=== PATIENT | female | born 2000 | race Caucasian/White ===

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

== ENCOUNTER 2020-06-12 09:42 | Outpatient (REF) | payer MEDICAID, SELFPAY ==
[2020-06-16 16:56] LABS: Chlamydia Result Positive (Negative)
[2020-06-16 16:59] LABS: GC Result Negative (Negative)
[2020-06-17 15:53] LABS: HIV-1/2 Ag & Ab Screen Negative (Negative)
[2020-06-17 15:54] LABS: Syphilis Serology (RPR) Negative (Negative)
== END 2020-06-12 10:02 ==
LOC: NCHCN 09:42
PROVIDERS: PCP Nurse Practitioner Family; Visit Provider Physician Assistant
DX: Z11.3 Encounter for screening for infections with a predominantly sexual mode of transmission (principal); N89.8 Other specified noninflammatory disorders of vagina
CPT/HCPCS: 87389; 87491; 87591; 86592

== ENCOUNTER 2020-07-27 19:40 | Outpatient (REF) | payer MEDICAID, SELFPAY ==
[2020-07-27 19:05] LABS: HCT 41.6 % (36.0-46.0); HGB 13.8 g/dL (11.2-15.7); MCHC 33.2 % (32.0-36.0); MCV 93.5 fL (80-95); Platelet Count 283 10^3/uL (130-400); RBC 4.45 10^6/uL (3.93-5.22); RDW-SD 44.3 fL; WBC 5.82 10^3/uL (4.4-10.8)
[2020-07-27 19:27] LABS: ALT 25 U/L (14-59); AST 15 U/L (15-37); Albumin 3.8 g/dL (3.4-5.0); Alkaline Phosphatase 80 U/L (46-116); Anion Gap 8.1 mmol/L (3-11); BUN 16 mg/dL (7-18); Bilirubin, Total 0.5 mg/dL (0.2-1.0); C-Reactive Protein 0.09 mg/dL (0.0-0.3); CO2 25.9 mmol/L (21.0-32.0); CREATININE 0.81 mg/dL (0.55-1.02); Calcium 8.7 mg/dL (8.5-10.1); Chloride 105 mmol/L (98-107); Glucose 73 mg/dL (74-106); Potassium 3.9 mmol/L (3.5-5.1); Sodium 139 mmol/L (136-145); Total Protein 6.7 g/dL (6.4-8.2)
[2020-07-27 19:48] LABS: ESR 7 mm/hr (0-20)
[2020-07-29 09:00] LABS: HBs Antibody, Quant 363.3 mIU/mL (See Note); Hepatitis B Surface Ab Positive (See Note)
[2020-07-29 09:11] LABS: Hepatitis B Surface Ag Negative (Negative)
[2020-07-29 09:37] LABS: Hepatitis C Ab w Rflx HCV PCR Negative (Negative)
[2020-07-29 10:09] LABS: HIV-1/2 Ag & Ab Screen Negative (Negative)
[2020-07-29 10:30] LABS: Syphilis Serology (RPR) Negative (Negative)
[2020-07-29 11:53] LABS: IgA 86 mg/dL (85-499); Interpretation (See Note); Tissue Transglutaminase IgA <1.2 U/mL (<4.0)
[2020-07-29 13:26] LABS: Chlamydia Result Negative (Negative); GC Result Negative (Negative)
[2020-07-29 15:00] LABS: ANA Interpretation Positive (Negative); ANA Titer Pattern 1:80 Homogeneous
== END 2020-07-27 20:00 ==
LOC: NCHCN 19:40
PROVIDERS: PCP Nurse Practitioner Family; Visit Provider Nurse Practitioner Family
DX: N89.8 Other specified noninflammatory disorders of vagina (principal); L29.8 Other pruritus; R23.8 Other skin changes; Z11.3 Encounter for screening for infections with a predominantly sexual mode of transmission; Z11.4 Encounter for screening for human immunodeficiency virus [HIV]; Z11.59 Encounter for screening for other viral diseases
CPT/HCPCS: 80053; 82784; 83516; 85027; 85652; 86706; 86803; 87340; 87389; 87491; 87591; 86038; 86140; 86592; 87480; 87510; 87660

== ENCOUNTER 2020-11-02 09:50 | Outpatient (REF) | payer MEDICAID, SELFPAY ==
[2020-11-04 09:44] LABS: Hepatitis B Surface Ag Negative (Negative)
[2020-11-04 10:55] LABS: HIV-1/2 Ag & Ab Screen Negative (Negative)
[2020-11-04 10:56] LABS: Hepatitis C Ab w Rflx HCV PCR Negative (Negative)
[2020-11-04 11:13] LABS: Syphilis Serology (RPR) Negative (Negative)
[2020-11-06 15:00] LABS: Chlamydia Result Negative (Negative); GC Result Negative (Negative)
== END 2020-11-02 09:51 | disposition home or self-care (01) ==
LOC: NCHCN 09:50
PROVIDERS: PCP Nurse Practitioner Family; Visit Provider Nurse Practitioner Family
DX: N89.8 Other specified noninflammatory disorders of vagina (principal); L29.8 Other pruritus; Z11.3 Encounter for screening for infections with a predominantly sexual mode of transmission; Z11.59 Encounter for screening for other viral diseases
CPT/HCPCS: 86803; 87340; 87389; 87491; 87591; 86592; 87480; 87510; 87660

== ENCOUNTER 2021-01-28 14:12 | Outpatient (CLI) | payer MEDICAID, SELFPAY ==
--- NOTE | 2021-01-28 14:30 | DI.US_ITS ---
Exam(s) US OB 1ST TRIMESTER EXAM: US OB 1ST TRIMESTER CLINICAL HISTORY: threatened miscarriage,bleeding. TECHNIQUE: First trimester obstetrical ultrasound was performed. COMPARISON: US US PELVIS TRANSVAGINAL from 12/06/2019 . There are no prior ultrasounds this gesta tion FINDINGS: There is an intrauterine gestational sac which contains a yolk sac and viable pole which exhibi ts heart rate of 178 bpm. Balta-rump length measurement is 26 mm, corresponding to 9 weeks and 3 days gestational age. Gestati onal sac appears slightly large. There is no evidence of subchorionic hemorrhage. Maternal ovaries: Right ovary measures 1.9 x 1.4 x 1.4 cm. Left ovary measures 2.7 x 1.9 x 2.3 cm and contains a 1.8 c m cyst which is possibly corpus luteal. There is no fluid in the cul-de-sac and adnexal regions. IMPRESSION:: Single viable intrauterine gestation which is approximately 9 weeks and 3 days gestatio nal age by crown rump length measurement, implying THERESA of August 30, 2021., There is no evidence of subchorionic hemorrhage. There is no free fluid evident in the cul-de-sac. DATA REPOSITORY:
== END 2021-01-28 14:32 ==
PROVIDERS: PCP Nurse Practitioner Family; Visit Provider Advanced Practice Midwife
DX: O20.0 Threatened abortion (principal); Z3A.09 9 weeks gestation of pregnancy
CPT/HCPCS: 76801

== ENCOUNTER 2021-02-17 16:26 | Outpatient (REF) | payer MEDICAID, SELFPAY ==
[2021-02-19 15:25] LABS: Chlamydia Result Negative (Negative); GC Result Negative (Negative)
== END 2021-02-17 16:27 | disposition home or self-care (01) ==
LOC: LBN 16:26
PROVIDERS: PCP Nurse Practitioner Family; Visit Provider Advanced Practice Midwife
DX: O20.9 Hemorrhage in early pregnancy, unspecified (principal); Z3A.13 13 weeks gestation of pregnancy
CPT/HCPCS: 87491; 87591; 87480; 87510; 87660

== ENCOUNTER 2021-02-18 16:04 | Outpatient (CLI) | payer MEDICAID, SELFPAY ==
[2021-02-18 16:14] LABS: Kit/Specimen SENT
[2021-02-18 16:25] LABS: Abs Immature Grans 0.06 10^3/uL (0.0-0.06); Absolute Basophil Count 0.02 10^3/uL (0.0-0.2); Absolute Neutrophil Count 9.54 10^3/uL (1.2-6.7); Basophils % 0.2; Eosinophils % 0.8; HCT 42.3 % (36.0-46.0); HGB 14.5 g/dL (11.2-15.7); Immature Grans % 0.5; Lymphocytes % 11.6; MCH 31.5 pg (27.0-33.0); MCHC 34.3 % (32.0-36.0); MCV 91.8 fL (80-95); MPV 9.7 fL (8.0-11.0); Monocytes % 7.5; Neutrophils % 79.4; Nucleated RBC 0 %; Platelet Count 285 10^3/uL (130-400); RBC 4.61 10^6/uL (3.93-5.22); RDW 12.8 % (11.7-14.6); RDW-SD 42.9 fL; WBC 12.02 10^3/uL (4.4-10.8)
[2021-02-18 16:27] LABS: Absolute Lymphocyte Count 1.39 10^3/uL (1.2-3.4)
[2021-02-18 17:12] LABS: TSH (W/Ref FT4) 2.27 uIU/mL (0.36-3.74)
[2021-02-18 20:21] LABS: *AMPHETAMINES SCREEN URINE Negative (Negative); *BARBITURATES SCREEN URINE Negative (Negative); *BENZODIAZEPINES SCREEN URINE Negative (Negative); Cannabinoids THC Negative (Negative); Cocaine Screen,Urine Negative (Negative); METHADONE URINE SCREEN Negative (Negative); OPIATES URINE SCREEN Negative (Negative)
[2021-02-18 20:37] LABS: Tricyclic Antidepressants Negative (Negative)
[2021-02-19 10:15] LABS: Hepatitis B Surface Ag Negative (Negative)
[2021-02-19 10:56] LABS: Hepatitis C Ab w Rflx HCV PCR Negative (Negative)
[2021-02-19 11:08] LABS: HIV-1/2 Ag & Ab Screen Negative (Negative)
[2021-02-19 12:00] LABS: Varicella IgG Antibody Positive (See Note)
[2021-02-19 12:07] LABS: Rubella IgG Ab (UVM) Positive (See Note)
[2021-02-19 12:15] LABS: HSV Type 1 Ab, IgG Negative (Negative); HSV Type 2 Ab, IgG Negative (Negative)
[2021-02-20 13:08] LABS: Syphilis Total Ab w/Reflex Nonreactive (Nonreactive)
[2021-02-24 10:04] LABS: Buprenorphine Negative ng/mL (Cutoff: 5.0); Norbuprenorphine Negative ng/mL (Cutoff: 2.5)
[2021-03-01 03:58] LABS: Result Summary NEGATIVE; Specimen WB Whole Blood
== END 2021-02-18 16:05 | disposition home or self-care (01) ==
LOC: LBO 16:06 → LBN 18:55
PROVIDERS: PCP Nurse Practitioner Family; Visit Provider Advanced Practice Midwife
DX: O99.341 Other mental disorders complicating pregnancy, first trimester (principal); F31.9 Bipolar disorder, unspecified; Z11.4 Encounter for screening for human immunodeficiency virus [HIV]; Z11.59 Encounter for screening for other viral diseases; Z01.84 Encounter for antibody response examination; Z3A.13 13 weeks gestation of pregnancy; Z36.89 Encounter for other specified antenatal screening
CPT/HCPCS: 36415; 80307; 86787; 86803; 86850; 86900; 86901; 87340; 87389; 81220; 84443; 85025; 86695; 86696; 86762; 86780; 87086

== ENCOUNTER 2021-03-17 13:06 | Emergency (ER) | payer MEDICAID, SELFPAY ==
[2021-03-17 13:13] VITALS: BP 111/62; PULSE 95; TEMP 36.9; O2SAT 96
--- NOTE | 2021-03-17 13:40 | ED.GENADUL_ITS ---
Discharge Plan Disposition Patient Disposition: HOME Condition: Improving Discharge Details Clinical Impression: , UTI (urinary tract infection) Primary Care Provider: Ean Ordoñez ED Provider: Chucky Santos Home Meds and New Rx's Prescriptions: New nitrofurantoin macrocrystal [Macrodantin] 100 mg capsule 100 mg PO BID 5 Days Qty: 10 RF: 0 Continued PreTAB 29-1 mg tablet 1 tab PO DAILY Qty: 90 RF: 4 Discharge Instructions Instructions: Urinary Tract Infection in Women (ED), (ED) Additional Instructions: You have a follow-up appointment on March 25 with [facility]. Call for the Appointment Time. Take antibiotics as prescribed. May use Tylenol as needed for aches or pains. Return for any acute concerns Medical Decision Making 20-year-old female, 4 months , presents with a number of complaints. She feels right low back pain, left arm and shoulder pain. She states she had a recent visit to the She is well-appearing. Exam is without focality. Screening urinalysis obtained. Urinalysis with positive leuk esterase, microscopic with mixed cells. However given that she is , will err on the side of treatment with nitrofurantoin. Discussed further work-up with the patient which she will decli juanjose at this time as she has to leave. She has a follow-up with the midwives clinic on March 25. [facility] General Mode of arrival: ambulatory . Date/Time Provider Initiated Documentation: 03/17/21 13:14 . Limitations to Documentation: no limitations . Information obtained by: patient . History of Present Illness 20 year old F presents to the emergency department with the chief complaint of Multiple complaints, Patient started experiencing this hour(s) and it has been intermittent. No relieving factors improve symptom(s), No exacerbating factors reported . Patient did receive the following treatments prior to arrival, none Related Data Home Medications Medication Instructions Recorded Confirmed vits,calcium no.78-iron 1 tab PO DAILY #90 tab 01/13/21 03/17/21 fumarate-folic acid 29 mg-1 mg tablet nitrofurantoin macrocrystal 100 mg PO BID 5 Days #10 cap 03/17/21 [Macrodantin] Previous Rx's Medication Instructions Recorded vits,calcium no.78-iron 1 tab PO DAILY #90 tab 01/13/21 fumarate-folic acid 29 mg-1 mg tablet nitrofurantoin macrocrystal 100 mg PO BID 5 Days #10 cap 03/17/21 [Macrodantin] Allergies Allergy/AdvReac Type Severity Reaction Status Date / Time No Known Allergies Allergy Unverified 03/17/21 13:22 General Stated Complaint: GenMedical YESICA: 3 Review of Systems Narrative: No fall or injury. States she recently was diagnosed with STD. No difficulty breathing. 6 systems reviewed and otherwise negative [facility] Medical History (Updated 03/17/21 @ 14:57 by Chucky Santos MD) Learning difficulty Marijuana smoker Mood disorder Posttraumatic stress disorder Reactive attachment disorder Short stature Threatened miscarriage Vaginal bleeding affecting early Surgical History (Updated 05/30/18 @ 14:36 by [employer] [place]) Adenoidectomy Tonsillectomy 11/2014 Family History Mother Substance abuse Bipolar disorder Mental disorder depression Father Schizophrenia Seizure Other Mental disorder MGM-depression Social History Smoking/Tobacco Use Status: Never Smoking risk assessment performed?: Yes Alcohol Intake: never Drug use: Never Substance use type: does not use Do you feel safe at home: Yes Do you feel safe in your relationship?: Yes Female Reproductive History Menstrual control method: none History History 1 Para 0 Hx # Term Pregnancies 0 Multiple births 0 Hx # Pregnancies 0 Ectopic pregnancies 0 AB induced 0 Hx Number of Living Children 0 AB spontaneous 0 Exam Narrative Exam Narrative: GEN: awake, alert, oriented 3. Pleasant, well groomed, interactive. HEAD: Normocephalic, atraumatic ENT: Mucous membranes moist, oropharynx unremarkable, External ear exam unremarkable EYES: PERRL, EOMI NECK: Full ROM, no PRASANNA, no menigismus CHEST/RESP: Nontender, clear to auscultation bilateral, no wheeze/rhonchi/rales CARDIOVASCULAR: RRR, no murmur, rub nikhil. 2+ Rad pulse bilateral ABDOMEN: Soft, gravid, nontender , no mass. +Bowel sounds EXT: Full ROM, no edema, no rash. Minimal tenderness with passive movement of the left arm. No focal tenderness. Neuro: Grossly normal neurologic exam, conversant, interactive. Psych: Speech fluent, thoughts congruent, affect normal Course Vital Signs Vital signs: Vital Signs Temperature 36.9 C 03/17/21 13:13 Pulse 95 H 03/17/21 13:13 Blood Pressure 111/62 03/17/21 13:13 Pulse Oximetry 96 03/17/21 13:13 Temperature 36.9 C 03/17/21 13:13 Temperature Source Temporal Artery Scan 03/17/21 13:13 Pulse 95 H 03/17/21 13:13 Respiratory Effort Non-Labored 03/17/21 13:33 Respiratory Depth Normal 03/17/21 13:33 Respiratory Pattern Normal 03/17/21 13:33 Blood Pressure 111/62 03/17/21 13:13 Blood Pressure Position Sitting 03/17/21 13:13 Pulse Oximetry 96 03/17/21 13:13 Oxygen Delivery Method Room Air 03/17/21 13:13 Oxygen Flow Rate 0 03/17/21 13:13 Pain Level 8 03/17/21 13:13
--- NOTE | 2021-03-17 13:57 | NUR.NOTE ---
Patient ambulates to restroom with steady gait. Urine specimen obtained, to be sent to lab.Nursing Note:
[2021-03-17 14:11] LABS: Bilirubin Negative (Negative); Blood Trace-intact (Negative); Clarity Sl Cloudy (Clear); Glucose Negative (Negative); Ketones Negative (Negative); Leukocyte Esterase Large (Negative); Nitrite Negative (Negative); Specific Gravity 1.025 (1.005-1.025); Urobilinogen 0.2 EU/dL (Up TO 0.2)
[2021-03-17 14:18] LABS: WBC >50 HPF (0-5)
[2021-03-17 14:20] LABS: Bacteria Many HPF (Negative); Crystals Moderate Amorphous HPF (Negative); Epithelial Cells Many HPF (Negative); Mucus Negative (Negative)
[2021-03-17 14:21] LABS: C & S Indicated? No/Sq. Contamination
--- NOTE | 2021-03-17 14:23 | NUR.NOTE ---
referral to [facility] wellness dozer operator for uti follow up
--- NOTE | 2021-03-17 14:57 | NUR.NOTE ---
1356-Lab called for venipuncture
[2021-03-17 15:08] VITALS: BP 104/65; PULSE 84; RESP 16; O2SAT 98
== END 2021-03-17 15:09 | disposition home or self-care (01) ==
PROVIDERS: Emergency Provider Emergency Medicine; PCP Nurse Practitioner Family
DX: O23.42 Unspecified infection of urinary tract in pregnancy, second trimester (principal)
CPT/HCPCS: 80053; 99283; 81003; 81015; 85025

== ENCOUNTER 2021-03-22 14:00 | Emergency (ER) | payer MEDICAID, SELFPAY ==
[2021-03-22 14:06] VITALS: BP 108/66; PULSE 104; RESP 17; TEMP 36.8; O2SAT 97
--- NOTE | 2021-03-22 14:35 | ED.GENADUL_ITS ---
Discharge Plan Disposition Patient Disposition: HOME Condition: Stable Discharge Details Clinical Impression: Abdominal cramping affecting Primary Care Provider: Ean Ordoñez ED Provider: Neetu Roldan Home Meds and New Rx's Prescriptions: Continued PreTAB 29-1 mg tablet 1 tab PO DAILY Qty: 90 RF: 4 Discharge Instructions Additional Instructions: Your heart rate is 152. You are still having good movements. This is very reassuring. However, given your cramping REGISTERED NURSE HH CASE MANAGER would like to see you immediately in the clinic. Please go directly from here to the clinic on the third floor. If you develop any new or worsening symptoms please seek care urgently once again Referrals: Alana Fischer MD [ [facility] STAFF PHYSICIAN] - Discharge Data Discharge Date/Time-TO BE ENTERED AT DEPARTURE: 03/22/21 15:34 Medical Decision Making Patient is a 20-year-old female presenting today with chief complaint of abdominal cramping. Patient reports that she is 17 weeks gestation. Began having some cramping this morning. She states that the pain has been consistent. She denies any fevers or chills. No nausea or vomiting. No change in bowel or bladder habits. Patient reports that she has been having vaginal discharge that is unchanged from her baseline. Patient is supposed to be being treated for trichomonas but states that she stopped her medications for this because she did not like the taste. Patient never picked up her antibiotics for recent diagnosis of urinary tract infection. She denies any back pain. No flank pain. Continues to feel movement. Abdomen is benign. Perform a vaginal exam. Patient having movements while here. heart rate 152. Spoke with Dr. Fischer. Relayed information. She advised patient to be seen in clinic. Will ensure this can happen now and call back. Dr. Fischer called back, they are able to see the patient immediately in the clinic. I discussed plan with the patient. She is agreeable to go immediately from our department to women's wellness for further evaluation. She is aware she may re turn anytime with any new or worsening symptoms. I did encourage that she begin the medications that she previously been prescribed. We did discuss the risks associated with not taking his medications. All of her questions and concerns were addressed and she is in agreement this plan peer [facility] General Mode of arrival: ambulatory . Date/Time Provider Initiated Documentation: 03/22/21 14:11 . Limitations to Documentation: no limitations . Information obtained by: patient, RN notes reviewed and old records reviewed . History of Present Illness 20 year old F presents to the emergency department with the chief complaint of Abdominal cramping and second trimester , described as moderate, Quality is described as other (Cramping), and is localized to the abdomen. Patient reports no radiation. Patient started experiencing this hour(s) and it has been constant. No relieving factors improve symptom(s), No exacerbating factors reported . Patient notes no other symptoms.. Patient did receive the following treatments prior to arrival, none Related Data Home Medications Medication Instructions Recorded Confirmed vits,calcium no.78-iron 1 tab PO DAILY #90 tab 01/13/21 03/25/21 fumarate-folic acid 29 mg-1 mg tablet Previous Rx's Medication Instructions Recorded vits,calcium no.78-iron 1 tab PO DAILY #90 tab 01/13/21 fumarate-folic acid 29 mg-1 mg tablet Allergies Allergy/AdvReac Type Severity Reaction Status Date / Time No Known Allergies Allergy Unverified 03/25/21 11:31 General Stated Complaint: Abd Prob YESICA: 3 Review of Systems Constitutional Constitutional: Reports as per HPI, Denies chills, Denies fatigue, Denies fever(s) and Denies headache(s) ENT Ears, Nose, Mouth, and Throat: Denies headache(s) Cardiovascular Cardiovascular: Reports as per HPI, Denies chest pain and Denies dyspnea Respiratory Respiratory: Reports as per HPI, Denies cough and Denies dyspnea Gastrointestinal Gastrointestinal: Reports as per HPI Genitourinary Genitourinary: Reports as per HPI, Denies abnormal vaginal bleeding and Denies vaginal discharge Musculoskeletal Musculoskeletal: Reports as per HPI and Denies back pain Integumentary/Breasts Skin/Breast: Reports as per HPI and Denies rash Neurologic Neurologic: Reports as per HPI and Denies headache(s) Endocrine Endocrine: Denies fatigue [facility] Medical History Learning difficulty Marijuana smoker Mood disorder Posttraumatic stress disorder Reactive attachment disorder Short stature Threatened miscarriage Vaginal bleeding affecting early Surgical History (Updated 05/30/18 @ 14:36 by [facility] [place]) Adenoidectomy Tonsillectomy 11/2014 Family History Mother Substance abuse Bipolar disorder Mental disorder depression Father Schizophrenia Seizure Other Mental disorder [facility]-depression Social History Smoking/Tobacco Use Status: Never Smoking risk assessment performed?: Yes Alcohol Intake: never Drug use: Never Substance use type: does not use Do you feel safe at home: Yes Do you feel safe in your relationship?: Yes Female Reproductive History Menstrual control method: none History History 1 Para 0 Hx # Term Pregnancies 0 Multiple births 0 Hx # Pregnancies 0 Ectopic pregnancies 0 AB induced 0 Hx Number of Living Children 0 AB spontaneous 0 Exam Const General: cooperative, healthy appearing, comfortable, no acute distress and well developed Nutritional Appearance: average body habitus and well nourished Orientation: alert and awake HENMT Head: normal to inspection Mouth: moist mucous membranes Resp Effort & Inspection: normal respiratory effort, able to speak in complete sentences and no respiratory distress Auscultation: clear to auscultation bilaterally, no rales, no rhonchi and no wheezes Cardio Rate: regular rate Rhythm: regular rhythm Heart Sounds: S1 normal and S2 normal GI Inspection: normal to inspection (As I would expect for gestational age) Palpation: soft and nontender Percussion: normal to percussion Auscultation: normal bowel sounds Back/Spine/Pelvis Back: no CVA tenderness Skin General skin exam: no rashes or lesions noted Trauma: no lacerations or abrasions Neuro General: patient alert and patient awake Cognition: normal cognition Speech: speech normal Gait: normal gait Psych Appearance: grossly normal and well kempt Mental Status: mental status grossly normal Speech and Movement: speech and movement normal Course Vital Signs Vital signs: Vital Signs Temperature 36.8 C 03/22/21 14:06 Pulse 104 H 03/22/21 14:06 Respiratory Rate 17 03/22/21 14:06 Blood Pressure 108/66 03/22/21 14:06 Pulse Oximetry 97 03/22/21 14:06 Temperature 36.8 C 03/22/21 14:06 Temperature Source Temporal Artery Scan 03/22/21 14:06 Pulse 104 H 03/22/21 14:06 Respiratory Rate 17 03/22/21 14:06 Respiratory Effort Non-Labored 03/22/21 14:10 Blood Pressure 108/66 03/22/21 14:06 Blood Pressure Position Sitting 03/22/21 14:06 Pulse Oximetry 97 03/22/21 14:06 Oxygen Delivery Method Room Air 03/22/21 14:06 Oxygen Flow Rate 0 03/22/21 14:06
== END 2021-03-22 15:34 | disposition home or self-care (01) ==
PROVIDERS: Emergency Provider Physician Assistant; PCP Nurse Practitioner Family
DX: O26.892 Other specified pregnancy related conditions, second trimester (principal)
CPT/HCPCS: 99283

== ENCOUNTER 2021-03-25 02:59 | Outpatient (CLI) | payer MEDICAID, SELFPAY ==
--- NOTE | 2021-03-25 06:45 | DI.US_ITS ---
Exam(s) US OB 2-3 TRIMESTER EXAM: US OB 2-3 TRIMESTER CLINICAL HISTORY: 18 wk anatomy survey,Z3A.13. TECHNIQUE: Transabdominal obstetrical ultrasound performed. COMPARISON: US US OB 1ST TRIMESTER from 01/28/2021 US US OB 1ST TRIMESTER from 01/28/2021 FINDINGS: Transabdominal obstetrical ultrasound performed. FINDINGS: Number of fetuses: One. position: Breech heart rate: 157 bpm. Placental location: Posterior. There is no evidence of previa. There is a low-lying placenta. The p lacental tip is 2.2 cm from the internal os. Amniotic fluid index: Visually, amount of fluid is within normal limits. ANATOMICAL SURVEY: Within normal limits. BIOMETRIC DATA: BPD: 3.5cm consistent with 16 weeks 5 days. HC: 13.4cm consistent with 17 weeks. AC: 10.9cm consistent with 16 weeks 5 days. FL: 2.2cm consistent with 16 weeks 5 days. Cisterna Magna: 3.0 mm Cerebellum: 1.74 cm EFW: 167 grms Composite Age: 16 weeks 6 days EDC by US: 09/03/2021 Heart Rate: 157BPM IMPRESSION: 1. Single live intrauterine gestation as above. Estimated weight is 167 g. 2. Normal anatomic survey. DATA REPOSITORY:
== END 2021-03-25 03:19 ==
PROVIDERS: PCP Nurse Practitioner Family; Visit Provider Advanced Practice Midwife
DX: O20.9 Hemorrhage in early pregnancy, unspecified (principal); O26.842 Uterine size-date discrepancy, second trimester; O44.42 Low lying placenta NOS or without hemorrhage, second trimester; Z3A.17 17 weeks gestation of pregnancy
CPT/HCPCS: 76805

== ENCOUNTER 2021-05-07 03:59 | Outpatient (CLI) | payer MEDICAID, SELFPAY ==
--- NOTE | 2021-05-07 08:00 | DI.US_ITS ---
Exam(s) US OB RM WEIGHT EXAM: US OB RM WEIGHT CLINICAL HISTORY: interval growth,size inconsistent with dates,O26.842. TECHNIQUE: Transabdominal obstetrical ultrasound performed. COMPARISON: US US OB 2-3 TRIMESTER from 03/25/2021 FINDINGS: Transabdominal obstetrical ultrasound performed. FINDINGS: Number of fetuses: One. position: Breech. Placental location: Posterior. No evidence of previa. The placental tip is 5.4 cm from the internal os. There is a grade 1 placenta. BIOMETRIC DATA: BPD: 54 mm = 22 weeks 3 days HC: 212 mm = 23 weeks 2 days AC: 188 mm = 23 weeks 4 days FL: 39 mm = 22 weeks 2 days EFW: 554 grms 5% Composite Age: 22 weeks 6 days EDC: 09/04/2021 Heart Rate: 145BPM Amniotic fluid index: 11.3 cm. Visually, amount of fluid is within normal limits. Umbilical artery: All values are between the 50th and 95th percentile. S/D equals 3.32 RI equals 0.7 PI equal 1.23 IMPRESSION: 1. Single live intrauterine gestation as above. 2. Estimated weight is 554gms. 3. Amniotic fluid index is 11.3 cm. Visually within normal limits. DATA REPOSITORY:
== END 2021-05-07 04:19 ==
PROVIDERS: PCP Nurse Practitioner Family; Visit Provider Advanced Practice Midwife
DX: O26.842 Uterine size-date discrepancy, second trimester; O44.42 Low lying placenta NOS or without hemorrhage, second trimester
CPT/HCPCS: 76816

== ENCOUNTER 2021-05-07 10:10 | Outpatient (CLI) | payer MEDICAID, SELFPAY ==
--- NOTE | 2021-05-07 | DI.US_ITS ---
Exam(s) US OB CERVICAL LENGTH EXAM: US OB CERVICAL LENGTH CLINICAL HISTORY: 24 wk risk for labor. TECHNIQUE: Transabdominal obstetrical ultrasound performed. COMPARISON: US US OB RM WEIGHT from 05/07/2021 FINDINGS: Transabdominal obstetrical ultrasound performed. FINDINGS: Number of fetuses: One. position: Breech Placental location: There is a grade 1 posterior placenta. No evidence of previa. The placental tip is 4.5 cm from the internal os. Cervical length: The cervix appears unremarkable. No funneling is noted. Cervical length is 5.6 cm. Heart Rate: 160BPM Amniotic fluid index: 12.7 cm. Visually, amount of fluid is within normal limits. IMPRESSION: 1. Single live intrauterine gestation as above. 2. Cervix appears unremarkable. Cervical length is 5.6 cm. 3. Amniotic fluid index is 12.7 cm. Visually within normal limits. DATA REPOSITORY:
[2021-05-07 10:19] VITALS: BP 102/63; PULSE 90; TEMP 37
--- NOTE | 2021-05-07 12:46 | PDOC.NST_ITS ---
Date of service: 05/07/21 Time of Service: 12:46 NST Evaluation Reason for NST Reasons for Nonstress Test: LABOR Gestational Age Gestational Age in Weeks and Days: 24 Weeks and 2Days Test and Monitor Explained Test/Monitor Explained: Test Explained, Monitor Explained and Patient Verbalized Understanding Vital Signs Blood Pressure: 102/63 Pulse: 90 Temperature: 98.6 F Urine Results Urine Protein: Negative Urine Ketones: Negative Urine Glucose: Negative Urine Blood: Negative NST Information Time on Monitor: 10:28 NST Interventions: PO Hydration Note NST Note Note: Cvx length done in the DI: 5.6 cm No contractions per toco Pt discharged to home, will return for lab appt at 0900 Monday for CMV/Toxo IgG and IgM DI will call pt to make 2 wk and 4 wk f/up ultrasound appt's To see client services account manager in 2 weeks NST Reviewed and Verified by: Kat Duffy
[2021-05-07 12:49] VITALS: BP 102/63; PULSE 90; TEMP 37
== END 2021-05-07 12:45 | disposition home or self-care (01) ==
LOC: BCD 10:11 → OBS 10:19
PROVIDERS: PCP Nurse Practitioner Family; Visit Provider Advanced Practice Midwife
DX: O60.02 Preterm labor without delivery, second trimester (principal); O23.592 Infection of other part of genital tract in pregnancy, second trimester; B96.89 Other specified bacterial agents as the cause of diseases classified elsewhere; Z3A.24 24 weeks gestation of pregnancy
CPT/HCPCS: 76815; 59025; 86644; 86645; 86777; 86778; 87480; 87510; 87660; G0378

== ENCOUNTER 2021-06-04 02:00 | Outpatient (CLI) | payer MEDICAID, SELFPAY ==
[2021-06-04 15:02] LABS: HCT 34.9 % (36.0-46.0); HGB 12.1 g/dL (11.2-15.7); MCHC 34.7 % (32.0-36.0); MCV 89.5 fL (80-95); MPV 9.6 fL (8.0-11.0); Platelet Count 278 10^3/uL (130-400); RDW 12.9 % (11.7-14.6); RDW-SD 41.9 fL; WBC 11.93 10^3/uL (4.4-10.8)
[2021-06-04 20:30] LABS: *AMPHETAMINES SCREEN URINE Negative (Negative); *BARBITURATES SCREEN URINE Negative (Negative); *BENZODIAZEPINES SCREEN URINE Negative (Negative); Cannabinoids THC Negative (Negative); Cocaine Screen,Urine Positive (Negative); METHADONE URINE SCREEN Negative (Negative); OPIATES URINE SCREEN Negative (Negative)
[2021-06-04 20:39] LABS: Tricyclic Antidepressants Negative (Negative)
[2021-06-05 12:23] LABS: CMV Ab, IgM Negative (Negative); Toxoplasma Ab, IgG Negative (Negative); Toxoplasma Ab, IgM Negative (Negative); Toxoplasma IgG Value <3 IU/mL
[2021-06-07 11:43] LABS: CMV IgG Antibody Negative (See Note)
[2021-06-09 09:16] LABS: Buprenorphine Negative ng/mL (Cutoff: 5.0); Norbuprenorphine Negative ng/mL (Cutoff: 2.5)
== END 2021-06-04 02:01 | disposition home or self-care (01) ==
LOC: LBO 02:00
PROVIDERS: Advanced Practice Midwife; PCP Nurse Practitioner Family; Visit Provider Advanced Practice Midwife
DX: O99.323 Drug use complicating pregnancy, third trimester (principal); O36.0130 Maternal care for anti-D [Rh] antibodies, third trimester, not applicable or unspecified; F14.10 Cocaine abuse, uncomplicated; Z67.91 Unspecified blood type, Rh negative; Z3A.28 28 weeks gestation of pregnancy
CPT/HCPCS: 36415; 80307; 85027; 86850; 90384; 86644; 86645; 86777; 86778

== ENCOUNTER 2021-06-09 02:14 | Outpatient (CLI) | payer MEDICAID, SELFPAY ==
--- NOTE | 2021-06-09 | DI.US_ITS ---
Exam(s) US OB RM WEIGHT EXAM: US OB RM WEIGHT CLINICAL HISTORY: INTERVAL GROWTH,INCONSISTENT SIZE OF FETUS,o26.842, wants UAD per provider. TECHNIQUE: Transabdominal obstetrical ultrasound was performed. COMPARISON: US US OB CERVICAL LENGTH from 05/07/2021 FINDINGS: There is a single viable intrauterine gestation with cardiac activity identified-140 bpm The fetus is presently in cephalic position . Amniotic fluid: There is a normal amount of amniotic fluid with an RM of 17cm. Placental location: The placenta is posterior grade 2,with no evidence of placenta previa. Dating parameters place this at approximately 28 weeks gestational age, implying THERESA of Aug. BPD measures 28 weeks and 5 days HC measures 28 weeks 4 days AC measures 27 weeks and 1 day FL measures 27 weeks 5 days Estimated weight is 1095 gm-2 pounds, 7 ounces Fetus is at the 5th percentile on the Hadlock scale. UMBILICAL ARTERY DOPPLE: Peak systolic velocity = 71.9 cm/sec End-diastolic velocity = 22.9 cm/sec S/D ratio = 3.14 PI = 1.3 RI = 0.7 IMPRESSION:: Viable into gestation, as described above. The fetus is at the 5th percentile on the Hadlock scale S/D ratio is 3.14 (50th percentile is 2.92/ 95th percentile is 4.19 close) DATA REPOSITORY:
== END 2021-06-09 02:34 ==
PROVIDERS: PCP Nurse Practitioner Family; Visit Provider Advanced Practice Midwife
DX: O26.842 Uterine size-date discrepancy, second trimester (principal)
CPT/HCPCS: 76816

== ENCOUNTER 2021-06-09 04:42 | Outpatient (CLI) | payer MEDICAID, SELFPAY ==
[2021-06-09 08:06] LABS: Glucose,1 Hr (Glucola) 135 mg/dL (80-140)
== END 2021-06-09 04:43 | disposition home or self-care (01) ==
LOC: LBO 04:42
PROVIDERS: Advanced Practice Midwife; PCP Nurse Practitioner Family; Visit Provider Advanced Practice Midwife
DX: Z34.93 Encounter for supervision of normal pregnancy, unspecified, third trimester (principal); Z3A.28 28 weeks gestation of pregnancy
CPT/HCPCS: 36415; 82950

== ENCOUNTER 2021-06-09 09:41 | Outpatient (REF) | payer MEDICAID, SELFPAY ==
[2021-06-09 10:54] LABS: *AMPHETAMINES SCREEN URINE Negative (Negative); *BARBITURATES SCREEN URINE Negative (Negative); *BENZODIAZEPINES SCREEN URINE Negative (Negative); Cannabinoids THC Negative (Negative); Cocaine Screen,Urine Positive (Negative); METHADONE URINE SCREEN Negative (Negative); OPIATES URINE SCREEN Negative (Negative)
[2021-06-09 10:55] LABS: Tricyclic Antidepressants Negative (Negative)
[2021-06-12 04:04] LABS: Buprenorphine Negative ng/mL (Cutoff: 5.0); Norbuprenorphine Negative ng/mL (Cutoff: 2.5)
== END 2021-06-09 09:42 | disposition home or self-care (01) ==
LOC: LBN 09:41
PROVIDERS: PCP Nurse Practitioner Family; Visit Provider Advanced Practice Midwife
DX: O99.323 Drug use complicating pregnancy, third trimester (principal); F14.10 Cocaine abuse, uncomplicated; Z3A.28 28 weeks gestation of pregnancy
CPT/HCPCS: 80307

== ENCOUNTER 2021-06-22 04:10 | Outpatient (CLI) | payer MEDICAID, SELFPAY ==
[2021-06-22 09:19] LABS: Glucose 1 Hour 192 mg/dL
[2021-06-22 11:16] LABS: Glucose 3 Hour 109 mg/dL
== END 2021-06-22 04:11 | disposition home or self-care (01) ==
LOC: LBO 04:10
PROVIDERS: PCP Nurse Practitioner Family; Visit Provider Advanced Practice Midwife
DX: R73.09 Other abnormal glucose (principal); Z34.93 Encounter for supervision of normal pregnancy, unspecified, third trimester
CPT/HCPCS: 36415; 80307; 82951

== ENCOUNTER 2021-06-22 10:58 | Outpatient (CLI) | payer MEDICAID, SELFPAY ==
[2021-06-22 11:24] VITALS: BP 100/62; PULSE 107; TEMP 36.9
[2021-06-22 11:26] VITALS: BP 100/62; PULSE 107; RESP 16; TEMP 36.9
--- NOTE | 2021-06-22 11:43 | W.OBNST ---
Date of service: 06/22/21 Time of Service: 11:40 NST Evaluation Reason for NST Reasons for Nonstress Test: LABOR Gestational Age Gestational Age in Weeks and Days: 30 Weeks and 6Days Test and Monitor Explained Test/Monitor Explained: Patient Verbalized Understanding NST Information Time on Monitor: 11:22 NST Interventions: PO Hydration and Other NST Evaluation Patient States Movement: Present Note NST Note Note: NST done due to patient complaint of lower abdominal cramping while at her visit. she is not having pain and states she believes she just needs to have a bowel movment. she is not having contractions noted on toco and her fundus is soft and non tender to palpation. Additionally, she is very hungry and is looking forward to going home and having subway for lunch with her parents. She states she moved back in with her parents as of yesterday and feels supported by them. She has adequate food sources. she is working with [employer] in relation to her cocaine use and has been clean per her report for almost a week. She has follow up at [facility] for umbilical Doppler report of >3.0 her last week. NST today is reactive and reassuring. Her follow up here will be based on her visit at [facility]. MATTHEW NST Reviewed and Verified by: Penelope Quezada
== END 2021-06-22 11:50 | disposition home or self-care (01) ==
LOC: BCD 11:01 → OBS 11:15
PROVIDERS: PCP Nurse Practitioner Family; Visit Provider Advanced Practice Midwife
DX: O60.03 Preterm labor without delivery, third trimester (principal); Z3A.30 30 weeks gestation of pregnancy; O99.323 Drug use complicating pregnancy, third trimester; F14.10 Cocaine abuse, uncomplicated
CPT/HCPCS: 59025

== ENCOUNTER 2021-06-22 15:13 | Outpatient (REF) | payer MEDICAID, SELFPAY ==
[2021-06-22 23:25] LABS: *AMPHETAMINES SCREEN URINE Negative (Negative); *BARBITURATES SCREEN URINE Negative (Negative); *BENZODIAZEPINES SCREEN URINE Negative (Negative); Cannabinoids THC Negative (Negative); Cocaine Screen,Urine Negative (Negative); METHADONE URINE SCREEN Negative (Negative); OPIATES URINE SCREEN Negative (Negative); Tricyclic Antidepressants Negative (Negative)
[2021-06-26 06:21] LABS: Buprenorphine Negative ng/mL (Cutoff: 5.0); Norbuprenorphine Negative ng/mL (Cutoff: 2.5)
== END 2021-06-22 15:14 | disposition home or self-care (01) ==
LOC: LBN 15:13
PROVIDERS: PCP Nurse Practitioner Family; Visit Provider Advanced Practice Midwife
DX: O99.323 Drug use complicating pregnancy, third trimester; F12.90 Cannabis use, unspecified, uncomplicated; F14.10 Cocaine abuse, uncomplicated
CPT/HCPCS: 80307

== ENCOUNTER 2021-06-30 15:22 | Outpatient (REF) | payer MEDICAID, SELFPAY ==
[2021-06-30 16:01] LABS: *AMPHETAMINES SCREEN URINE Negative (Negative); *BARBITURATES SCREEN URINE Negative (Negative); *BENZODIAZEPINES SCREEN URINE Negative (Negative); Cannabinoids THC Negative (Negative); Cocaine Screen,Urine Negative (Negative); METHADONE URINE SCREEN Negative (Negative); OPIATES URINE SCREEN Negative (Negative)
[2021-06-30 16:06] LABS: Tricyclic Antidepressants Negative (Negative)
[2021-07-03 10:01] LABS: Buprenorphine Negative ng/mL (Cutoff: 5.0); Norbuprenorphine Negative ng/mL (Cutoff: 2.5)
== END 2021-06-30 15:23 | disposition home or self-care (01) ==
LOC: LBN 15:22
PROVIDERS: PCP Nurse Practitioner Family; Visit Provider Advanced Practice Midwife
DX: O99.323 Drug use complicating pregnancy, third trimester (principal); F14.10 Cocaine abuse, uncomplicated; Z3A.32 32 weeks gestation of pregnancy
CPT/HCPCS: 80307

== ENCOUNTER 2021-07-02 14:53 | Outpatient (REF) | payer MEDICAID, SELFPAY | END 2021-07-02 14:54 | disposition home or self-care (01) | LOC: LBN 14:53 | PROVIDERS: PCP Nurse Practitioner Family; Visit Provider Advanced Practice Midwife | DX: O26.893 Other specified pregnancy related conditions, third trimester; N89.8 Other specified noninflammatory disorders of vagina | CPT/HCPCS: 87480; 87510; 87660 ==

== ENCOUNTER 2021-07-06 13:21 | Outpatient (REF) | payer MEDICAID, SELFPAY ==
[2021-07-06 14:01] LABS: *AMPHETAMINES SCREEN URINE Negative (Negative); *BARBITURATES SCREEN URINE Negative (Negative); *BENZODIAZEPINES SCREEN URINE Negative (Negative); Cannabinoids THC Negative (Negative); Cocaine Screen,Urine Negative (Negative); METHADONE URINE SCREEN Negative (Negative); OPIATES URINE SCREEN Negative (Negative)
[2021-07-06 14:11] LABS: Tricyclic Antidepressants Negative (Negative)
[2021-07-11 10:27] LABS: Buprenorphine Negative ng/mL (Cutoff: 5.0)
== END 2021-07-06 13:22 | disposition home or self-care (01) ==
LOC: LBN 13:21
PROVIDERS: PCP Nurse Practitioner Family; Visit Provider Advanced Practice Midwife
DX: O99.323 Drug use complicating pregnancy, third trimester; F14.10 Cocaine abuse, uncomplicated
CPT/HCPCS: 80307

== ENCOUNTER 2021-07-16 17:51 | Outpatient (REF) | payer MEDICAID, SELFPAY ==
[2021-07-16 17:23] LABS: *AMPHETAMINES SCREEN URINE Negative (Negative); *BARBITURATES SCREEN URINE Negative (Negative); *BENZODIAZEPINES SCREEN URINE Negative (Negative); Cannabinoids THC Negative (Negative); Cocaine Screen,Urine Negative (Negative); METHADONE URINE SCREEN Negative (Negative); OPIATES URINE SCREEN Negative (Negative)
[2021-07-16 17:35] LABS: Tricyclic Antidepressants Negative (Negative)
[2021-07-23 09:37] LABS: Buprenorphine Negative ng/mL (Cutoff: 5.0)
== END 2021-07-16 17:52 | disposition home or self-care (01) ==
LOC: LBN 17:51
PROVIDERS: PCP Nurse Practitioner Family; Visit Provider Advanced Practice Midwife
DX: O99.323 Drug use complicating pregnancy, third trimester; F14.10 Cocaine abuse, uncomplicated
CPT/HCPCS: 80307

== ENCOUNTER 2021-07-20 18:59 | Outpatient (REF) | payer MEDICAID, SELFPAY ==
[2021-07-20 17:24] LABS: *AMPHETAMINES SCREEN URINE Negative (Negative); *BARBITURATES SCREEN URINE Negative (Negative); *BENZODIAZEPINES SCREEN URINE Negative (Negative); Cannabinoids THC Negative (Negative); Cocaine Screen,Urine Negative (Negative); METHADONE URINE SCREEN Negative (Negative); OPIATES URINE SCREEN Negative (Negative)
[2021-07-20 17:41] LABS: Tricyclic Antidepressants Negative (Negative)
[2021-07-27 16:40] LABS: Buprenorphine Negative ng/mL (Cutoff: 5.0); Norbuprenorphine Negative ng/mL (Cutoff: 2.5)
== END 2021-07-20 19:00 | disposition home or self-care (01) ==
LOC: NCHCN 18:59
PROVIDERS: PCP Nurse Practitioner Family; Visit Provider Advanced Practice Midwife
DX: O99.323 Drug use complicating pregnancy, third trimester; N89.8 Other specified noninflammatory disorders of vagina; F14.10 Cocaine abuse, uncomplicated; Z3A.34 34 weeks gestation of pregnancy
CPT/HCPCS: 80307; 87480; 87510; 87660

== ENCOUNTER 2021-07-29 18:12 | Outpatient (REF) | payer MEDICAID, SELFPAY ==
[2021-07-29 17:41] LABS: *AMPHETAMINES SCREEN URINE Negative (Negative); *BARBITURATES SCREEN URINE Negative (Negative); *BENZODIAZEPINES SCREEN URINE Negative (Negative); Cannabinoids THC Negative (Negative); Cocaine Screen,Urine Negative (Negative); METHADONE URINE SCREEN Negative (Negative); OPIATES URINE SCREEN Negative (Negative)
[2021-07-29 18:02] LABS: Tricyclic Antidepressants Negative (Negative)
[2021-08-05 12:30] LABS: Buprenorphine Negative ng/mL (Cutoff: 5.0); Norbuprenorphine Negative ng/mL (Cutoff: 2.5)
== END 2021-07-29 18:13 | disposition home or self-care (01) ==
LOC: LBN 18:12
PROVIDERS: PCP Nurse Practitioner Family; Visit Provider Advanced Practice Midwife
DX: F14.10 Cocaine abuse, uncomplicated (principal); O99.323 Drug use complicating pregnancy, third trimester
CPT/HCPCS: 80307; 87081

== ENCOUNTER 2021-08-04 15:14 | Outpatient (REF) | payer MEDICAID, SELFPAY ==
[2021-08-04 15:38] LABS: *AMPHETAMINES SCREEN URINE Negative (Negative); *BARBITURATES SCREEN URINE Negative (Negative); *BENZODIAZEPINES SCREEN URINE Negative (Negative); Cannabinoids THC Negative (Negative); Cocaine Screen,Urine Negative (Negative); METHADONE URINE SCREEN Negative (Negative); OPIATES URINE SCREEN Negative (Negative)
[2021-08-04 15:39] LABS: Tricyclic Antidepressants Negative (Negative)
[2021-08-17 14:51] LABS: Buprenorphine Negative ng/mL (Cutoff: 5.0); Norbuprenorphine Negative ng/mL (Cutoff: 2.5)
== END 2021-08-04 15:15 | disposition home or self-care (01) ==
LOC: LBN 15:14
PROVIDERS: PCP Nurse Practitioner Family; Visit Provider Advanced Practice Midwife
DX: O99.323 Drug use complicating pregnancy, third trimester (principal); F14.10 Cocaine abuse, uncomplicated; Z3A.37 37 weeks gestation of pregnancy
CPT/HCPCS: 80307

== ENCOUNTER 2021-08-09 15:28 | Outpatient (REF) | payer MEDICAID, SELFPAY ==
[2021-08-09 17:36] LABS: *AMPHETAMINES SCREEN URINE Negative (Negative); *BARBITURATES SCREEN URINE Negative (Negative); *BENZODIAZEPINES SCREEN URINE Negative (Negative); Cannabinoids THC Negative (Negative); Cocaine Screen,Urine Negative (Negative); METHADONE URINE SCREEN Negative (Negative); OPIATES URINE SCREEN Negative (Negative)
[2021-08-09 17:38] LABS: Tricyclic Antidepressants Negative (Negative)
[2021-08-20 19:32] LABS: Buprenorphine Negative ng/mL (Cutoff: 5.0); Norbuprenorphine Negative ng/mL (Cutoff: 2.5)
== END 2021-08-09 15:29 | disposition home or self-care (01) ==
LOC: LBN 15:28
PROVIDERS: PCP Nurse Practitioner Family; Visit Provider Advanced Practice Midwife
DX: F14.10 Cocaine abuse, uncomplicated (principal); O99.323 Drug use complicating pregnancy, third trimester
CPT/HCPCS: 80307; 87491; 87591

== ENCOUNTER 2021-08-17 17:40 | Outpatient (REF) | payer MEDICAID, SELFPAY ==
[2021-08-17 17:53] LABS: *AMPHETAMINES SCREEN URINE Negative (Negative); *BARBITURATES SCREEN URINE Negative (Negative); *BENZODIAZEPINES SCREEN URINE Negative (Negative); Cannabinoids THC Negative (Negative); Cocaine Screen,Urine Negative (Negative); METHADONE URINE SCREEN Negative (Negative); OPIATES URINE SCREEN Negative (Negative); Tricyclic Antidepressants Negative (Negative)
[2021-08-20 10:41] LABS: Chlamydia Result Negative (Negative); GC Result Negative (Negative)
[2021-08-25 12:09] LABS: Buprenorphine Negative ng/mL (Cutoff: 5.0); Norbuprenorphine Negative ng/mL (Cutoff: 2.5)
== END 2021-08-17 17:41 | disposition home or self-care (01) ==
LOC: LBN 17:40
PROVIDERS: PCP Nurse Practitioner Family; Visit Provider Advanced Practice Midwife
DX: F14.10 Cocaine abuse, uncomplicated (principal); O99.323 Drug use complicating pregnancy, third trimester
CPT/HCPCS: 80307; 87491; 87591

== ENCOUNTER 2021-08-25 15:12 | Outpatient (REF) | payer MEDICAID, SELFPAY ==
[2021-08-25 11:49] LABS: *AMPHETAMINES SCREEN URINE Negative (Negative); *BARBITURATES SCREEN URINE Negative (Negative); *BENZODIAZEPINES SCREEN URINE Negative (Negative); Cannabinoids THC Negative (Negative); Cocaine Screen,Urine Negative (Negative); METHADONE URINE SCREEN Negative (Negative); OPIATES URINE SCREEN Negative (Negative); Tricyclic Antidepressants Negative (Negative)
[2021-08-31 08:41] LABS: Buprenorphine Negative ng/mL (Cutoff: 5.0); Norbuprenorphine Negative ng/mL (Cutoff: 2.5)
== END 2021-08-25 15:13 | disposition home or self-care (01) ==
LOC: LBN 15:12
PROVIDERS: PCP Nurse Practitioner Family; Visit Provider Advanced Practice Midwife
DX: Z34.93 Encounter for supervision of normal pregnancy, unspecified, third trimester (principal)
CPT/HCPCS: 80307

== ENCOUNTER 2021-08-31 08:51 | Inpatient (IN) | payer MEDICAID, SELFPAY ==
[2021-08-31] VITALS (119 sets, daily range): BP systolic 90–141; BP diastolic 50–81; PULSE 70–126; RESP 16–18; TEMP 36.4–37.6; O2SAT 96–100; BMI 29.9
[2021-08-31 08:45] LABS: Source Nasal/Nares
[2021-08-31] MEDS: miSOPROStol 25 MCG TAB PO ×3 (09:09→17:48)
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
[2021-08-31 09:40] LABS: HCT 40.5 % (36.0-46.0); HGB 13.6 g/dL (11.2-15.7); MCHC 33.6 % (32.0-36.0); MCV 89.2 fL (80-95); MPV 10.3 fL (8.0-11.0); Platelet Count 227 10^3/uL (130-400); RBC 4.54 10^6/uL (3.93-5.22); RDW 15.7 % (11.7-14.6); WBC 10.25 10^3/uL (4.4-10.8)
[2021-08-31 10:01] LABS: COVID-19 PCR Negative (Negative)
[2021-08-31 10:20] LABS: *AMPHETAMINES SCREEN URINE Negative (Negative); *BARBITURATES SCREEN URINE Negative (Negative); *BENZODIAZEPINES SCREEN URINE Negative (Negative); Cannabinoids THC Negative (Negative); Cocaine Screen,Urine Negative (Negative); METHADONE URINE SCREEN Negative (Negative); OPIATES URINE SCREEN Negative (Negative)
[2021-08-31 10:25] LABS: Tricyclic Antidepressants Negative (Negative)
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
--- NOTE | 2021-08-31 19:10 | W.ANESPRE ---
General Info Date of Service Date Performed: 08/31/21 Height: 4 ft 11 in Weight: 67.302 kg Body Mass Index (BMI): 29.9 Meds Allergies and Home Medications Allergies Allergy/AdvReac Type Severity Reaction Status Date / Time No Known Allergies Allergy Verified 08/31/21 09:37 Home Medication Medication Instructions Recorded vits,calcium no.78-iron 1 tab PO DAILY #90 tab 01/13/21 fumarate-folic acid 29 mg-1 mg tablet pantoprazole 40 mg tablet,delayed 40 mg PO DAILY #30 tab 06/24/21 release fluconazole 150 mg tablet 150 mg PO ONCE #1 tab 08/25/21 Current Visit Medications: Current Medications Generic Name Dose Route Start Last Admin Trade Name Freq PRN Reason Stop Dose Admin Fentanyl/Ropivacaine 200 ml 08/31/21 19:00 Fentanyl/Ropivacaine 2 Mcg/Ml And 0.1% 200 Ml Cadd Cassette EP DIRECTED MICHAEL Ringer's Solution 1,000 mls @ 200 mls/hr 08/31/21 09:00 IV INFUSION ON LICENSE OF [facility] Sodium Chloride 500 mls @ 0 mls/hr 08/31/21 08:51 Saline 500ml Bag IV PRN PRN As Directed Ringer's Solution 500 mls @ 500 mls/hr 08/31/21 18:52 IV 08/31/21 19:51 BOLUS ONE IV Miscellaneous Supplies 1 each 08/31/21 09:00 Iv Access IV DIRECTED ON LICENSE OF [facility] Misoprostol 25 mcg 08/31/21 09:00 08/31/21 17:48 Misoprostol 25 Mcg Tab PO 25 mcg Q4H MICHAEL Administration Sodium Chloride 0 ml 08/31/21 08:51 Normal Saline Flush 10 Ml Syr IVP PRN PRN Terbutaline Sulfate 0.25 mg 08/31/21 08:51 Terbutaline 1 Mg/Ml Vial SC PRN PRN Zolpidem Tartrate 10 mg 08/31/21 21:00 Zolpidem 5 Mg Tab PO 09/01/21 06:00 2100 [facility] Active Problems Active Problems: Problem Status Onset Code Encounter for induction of labor Z34.90 41 weeks gestation of Z3A.41 Cocaine abuse affecting O99.320, F14.10 Acid reflux K21.9 Food insecurity Z59.41 Problem related to housing and economic circumstances Z59.9 Bipolar disorder F31.9 UTI (urinary tract infection) N39.0 Chronic post-traumatic stress disorder (PTSD) F43.12 Rh negative state in antepartum period O26.899, Z67.91 Marijuana smoker F12.90 Medical History Medical History (Updated 08/31/21 @ 18:55 by Julia Duffy) 13 weeks gestation of Abdominal cramping affecting Elevated glucose level 1 hour elevated, 3 hour normal Hx of vaginitis Low lying placenta nos or without hemorrhage, second trimester resolved 05/07/21 Mood disorder Posttraumatic stress disorder contractions Reactive attachment disorder Swelling of lower extremity during Threatened miscarriage Trichomonal leukorrhea vaginalis Vaginal bleeding affecting early Vaginal discharge during Vaginal odor Surgical History Surgical History Adenoidectomy Tonsillectomy 11/2014 Tobacco Smoking/Tobacco Use Status: Never Alcohol Alcohol Intake: never Substance Use Substance use: Current Sobriety Substance use type: former substance user and crack/cocaine Prental History History 1 Para 0 Hx # Term Pregnancies 0 Multiple births 0 Hx # Pregnancies 0 Ectopic pregnancies 0 AB induced 0 Hx Number of Living Children 0 AB spontaneous 0 Vital Signs and Lab Results Vital Signs Most Recent Vital Signs in EMR: Most Recent Vital Signs Temp Pulse Resp BP 36.7 C 92 H 16 112/68 08/31/21 15:14 08/31/21 17:06 08/31/21 15:14 08/31/21 17:06 Lab Results Result Diagrams: 08/31/21 09:20 Blood Type / Crossmatch: Patient ABO/Rh O Negative 08/31/21 Antibody Screen NEGATIVE 08/31/21 Complete Blood Count: White Blood Count 10.25 10^3/uL (4.4-10.8) 08/31/21 09:20 08/31/21 Red Blood Count 4.54 10^6/uL (3.93-5.22) 08/31/21 09:20 08/31/21 Hemoglobin 13.6 g/dL (11.2-15.7) 08/31/21 09:20 08/31/21 Hematocrit 40.5 % (36.0-46.0) 08/31/21 09:20 08/31/21 Platelet Count 227 10^3/uL (130-400) 08/31/21 09:20 08/31/21 Complete Metabolic Panel: No Data to Display Liver Function Panel: No Data to Display Coagulation Panel: No Data to Display Cardiac Panel: No Data to Display Arterial Blood Gas: No Data to Display Venous Blood Gas: No Data to Display Pancreas Panel: No Data to Display Thyroid Panel: No Data to Display Infectious Disease: Coronavirus (COVID-19)(PCR) Negative (Negative) 08/31/21 08:05 08/31/21 Coronavirus 2019 Source Nasal/Nares 08/31/21 08:05 08/31/21 Neisseria gonorrhoeae DNA Probe Negative (Negative) 08/17/21 15:30 08/17/21 Blood Cultures: No Data to Display Toxicology Panel: Urine Amphetamines Screen Negative (Negative) 08/31/21 08:30 08/31/21 Urine Benzodiazepines Screen Negative (Negative) 08/31/21 08:30 08/31/21 Urine Barbiturates Screen Negative (Negative) 08/31/21 08:30 08/31/21 Urine Cocaine Screen Negative (Negative) 08/31/21 08:30 08/31/21 Urine Methadone Screen Negative (Negative) 08/31/21 08:30 08/31/21 Urine Opiates Screen Negative (Negative) 08/31/21 08:30 08/31/21 Ur Tricyclic Antidepressants Screen Negative (Negative) 08/31/21 08:30 08/31/21 Ur Tetrahydrocannabinol (THC) Scrn Negative (Negative) 08/31/21 08:30 08/31/21 Panel: No Data to Display Anesthesia Assessment and Plan Anesthesia History Personal History: No History of Anesthesia Complications Family History: No Family History of Anesthesia Complications Exercise Tolerance Exercise Tolerance: Metabolic Equivalents>4 Pertinent Negatives Pertinent Negatives: No Major Cardiovascular Symptoms or Complaints and No Major Pulmonary Symptoms or Complaints Cardiac & Pulmonary Exam Cardiac Exam: Normal S1/S2 Heart Sounds Pulmonary Exam: Clear Bilateral Breath Sounds Implantable Cardiac Device Does patient have a Pacemaker or an ICD?: No Airway Exam Known Difficult Airway: No Mallampati Class: 2 Mouth Opening: Normal (> 3cm) Thyromental Distance: Greater than 3 cm Neck Range of Motion: Full ROM Neck Circumference: Normal Teeth Condition: Normal Dentition ASA Classification ASA Score: ASA 2 Emergency Case?: No NPO Status NPO Status: NPO Clears >2 hours, Solids >8 hours Status Status: Confirmed Anesthesia Plan Resuscitation Status: Full Code Anesthesia Technique: Epidural Anesthesia Airway Planned: Natural Airway Monitors Used: Standard Monitors
[2021-08-31] MEDS: FentaNYL/ROPIvacaine 2 mcg/ml and 0.1% 200 ML CADD Cassette EP (19:50)
[2021-08-31] MEDS: Lactated Ringers 500 ML IV (20:07)
--- NOTE | 2021-08-31 20:29 | ANES.NEUR_ITS ---
Epidural/Spinal Catheter Date Performed: 08/31/21 Procedure Start: 19:50 Procedure Stop: 20:34 Requesting Provider: Julia Duffy Procedure Location: Obstetrics Reason Performed: Labor Epidural Standard Monitors Applied: Blood Pressure, SpO2 and See EMR for corresponding vital signs Patient Position: Sitting Sedation Given (Indicate Dose Given): No Sedation given Patient Mental Status: Awake Sterility: Hand Hygiene, Surgical Cap, Surgical Mask, Sterile Gloves, Sterile Drape/Sheet and Chlorhexidine Procedure Location: L3-L4 Interspace Epidural Needle: Tuohy 17 Guage Needle Length: 3.5 Inch Needle Approach: Midline Epidural Procedure: Skin Prepped, Sterile Drape Placed, 1% Lidocaine to skin and subcutaneous tissue with 25G needle, Tuohy Needle placed, KARMEN to Saline Used, Epidural Catheter Placed, Negative Heme, Negative CSF Flow and Tuohy Needle Removed Catheter Placed?: Catheter Placed Test Dose (Indicate Dose Given): 3ml 1.5% Lido heraclio with 1:200K Epinephrine Given and Negative Test Dose Loss of Resistance Depth (cm): 5 Catheter depth at skin (cm): 12 Dressing: Sorbaview Dressing Placed, Mastisol Used and Dressing reinforced with Tape Epidural Provider Bolus (Indicate Dose Given): None Given Additives (Indicate Dose Given ): None Infusion Medication: Medication Infusion Began Medication Infusion: Ropivacaine 0.1% with Fentanyl 2mcg/ml Maintenance Infusion Rate (ml/hour): 10 PCEA Bolus Dose (ml): 5 Block Level: N/A Paresthesia: None Ultrasound: Not Used Number of Attempts (See previous attempts in note section): 1 Procedure Tolerated: No Complications and Patient tolerated well Procedure Outcome: Successful Procedure Comment:: 0814: Negative test dose. Discussed alternatives with patient. We could leave the catheter dry for now and she could call later to begin the infusion/bolus for increased comfort, or she could start the maintenance infusion and use her PCEA as needed as labor progresses. She chose the 2nd option. Tolerated procedure well, educated on PCEA use as well as to contact Rn if she has any quesitons who will then contact me. Performed By: Lupillo Vigil
[2021-08-31] MEDS: Lactated Ringers 1,000 ML 200 ML IV (21:42)
--- NOTE | 2021-08-31 23:02 | W.PM.OBNL1 ---
Date of service: 08/31/21 Time of Service: 23:03 Pelvic Exam Dilation: 3 Effacement (%): 100 station: -1 Cervix Position: anterior Consistency: soft Contractions Monitor Mode: Internal Contraction Frequency(min): q2 Intensity: Moderate IUPC resting tone (mmHg): 40 IUPC peak pressure (mmHg): 80 Fetus A Monitor: Internal (FSE) Heart Rate Baseline: 130 Presentation: Cephalic Variability: Moderate (6-25 BPM) Categories: Category II Accelerations: Present Decelerations: Variable and Prolonged Recurrence: Recurrent Amniotic Membrane Status: Ruptured Assessment and Plan Assessment and plan (1) 41 weeks gestation of : Status: Acute Assessment and plan: A: variable & prolonged decels IUPC and FSE inserted Category 2 tracing, moderate variability with recurrent decels Remote from delivery P: Dr. Shelton matthews and en route Terbutaline 0.25 mg SC given Aviation Warfare Systems Operator notified and requested to unit (2) Encounter for induction of labor: Status: Acute (3) Cocaine abuse affecting : Status: Acute Qualifiers: Trimester: second trimester Qualified Code(s): O99.322 - Drug use complicating , second trimester; F14.10 - Cocaine abuse, uncomplicated Objective Vital Signs Reviewed: Yes Subjective Interval history since last seen: Comfortable with epidural working well
[2021-08-31] MEDS: Terbutaline 1 MG/ML VIAL 0.25 MG SC (23:08)
--- NOTE | 2021-08-31 23:31 | NUR.NOTE ---
Nursing Note: 2215 decelerations noted. Pt encouraged to change position with temporary recovery until 2246. Repetitive FHR decelerations noted at that time. Pt turned left and right with no recovery of FHR. Internals placed by VJ Duffy at 2255. LR Bolus started and O2 at 10L via NC started at 2299. Pt to hands and knees position at 2304 with FHR baseline recovering. .25mg terbutaline in MARCEL at 2307. FHR remained at baseline with moderate variability and pt returned to a sideying position at 2322. LR reduced to 200ml/hr and Oxygen stopped at this time. Dr Peoples at bedside at 2340.
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
[2021-08-31] MEDS: Acetaminophen 500 MG TAB 1000 MG PO (23:55)
[2021-09-01] VITALS (97 sets, daily range): BP systolic 84–102; BP diastolic 43–68; PULSE 69–141; RESP 16–21; TEMP 36.4–37.4; TEMPC 36.6; O2SAT 93–99
--- NOTE | 2021-09-01 00:06 | W.PM.OBNL1 ---
Date of service: 09/01/21 Time of Service: 00:06 Assessment and Plan Assessment and plan (1) 41 weeks gestation of : Status: Acute Assessment and plan: A: Category 2 tracing, variables and spontaneous tachysystole FHT stabilized after intrauterine resuscitation efforts: maternal position changes, 02 per mask, IVF bolus contractions decreased immediately after terb 0.25 SC given @ 2208 marked improvement to category [address] Peoples on unit, reviewed tracing and spoke with pt Maternal temp 99.7 P: Will allow terbutaline to wear off Internal monitors remain in position Will assess response to further labor Pt drowsy, encourage rest/sleep Tylenol 1 gm PO given (2) Encounter for induction of labor: Status: Acute (3) Cocaine abuse affecting : Status: Acute Qualifiers: Trimester: second trimester Qualified Code(s): O99.322 - Drug use complicating , second trimester; F14.10 - Cocaine abuse, uncomplicated Objective Vital Signs Reviewed: Yes Subjective Patient Reports: No new Complaints Interval history since last seen: Tired, sleepy, comfortable with epidural
--- NOTE | 2021-09-01 00:28 | W.PM.OBNL1 ---
Date of service: 09/01/21 Time of Service: 00:28 Informed Consent Informed Consent: Section Delivery, Regional Anesthesia and Risk,Benefits,Alternatives Discussed Pelvic Exam Dilation: 4 Effacement (%): 70 station: -2 Position: LUCAS Cervix Position: mid Consistency: soft Vaginal Exam Presentation: Vertex Contractions Monitor Mode: Internal Contraction Frequency(min): 3 Contraction Duration(sec): 60 Intensity: Moderate Fetus A Monitor: Internal (FSE) Presentation: Vertex Variability: Moderate (6-25 BPM) Categories: Category II FHR Rhythm: Regular Characteristics: Tachycardia Accelerations: Present Decelerations: Early and Variable Recurrence: Intermittent Amniotic Membrane Status: Ruptured Assessment Note: Category II strip with moderate variability. Will monitor closely. Low threshold for section Assessment and Plan Assessment and plan (1) Encounter for induction of labor: Status: Acute Assessment and plan: Slow progress in labor with Category II strip (2) 41 weeks gestation of : Status: Acute (3) Cocaine abuse affecting : Status: Acute Qualifiers: Trimester: second trimester Qualified Code(s): O99.322 - Drug use complicating , second trimester; F14.10 - Cocaine abuse, uncomplicated Objective Abnormal lab results 08/31/21 Range/Units 09:20 RDW 15.7 H (11.7-14.6) % Temp Pulse Resp BP Pulse Ox 99.4 F 127 H 16 100/64 97 08/31/21 23:56 09/01/21 00:25 08/31/21 15:14 09/01/21 00:21 09/01/21 00:25 Laboratory Results WBC 10.25 10^3/uL (4.4-10.8) 08/31/21 09:20 RBC 4.54 10^6/uL (3.93-5.22) 08/31/21 09:20 Hgb 13.6 g/dL (11.2-15.7) 08/31/21 09:20 Hct 40.5 % (36.0-46.0) 08/31/21 09:20 MCV 89.2 fL (80-95) 08/31/21 09:20 MCH 30.0 pg (27.0-33.0) 08/31/21 09:20 MCHC 33.6 % (32.0-36.0) 08/31/21 09:20 RDW 15.7 % (11.7-14.6) H 08/31/21 09:20 Plt Count 227 10^3/uL (130-400) 08/31/21 09:20 MPV 10.3 fL (8.0-11.0) 08/31/21 09:20 Urine Opiates Screen Negative (Negative) 08/31/21 08:30 Urine Methadone Screen Negative (Negative) 08/31/21 08:30 Ur Barbiturates Screen Negative (Negative) 08/31/21 08:30 Ur Tricyclics Screen Negative (Negative) 08/31/21 08:30 Ur Amphetamines Screen Negative (Negative) 08/31/21 08:30 U Benzodiazepines Scrn Negative (Negative) 08/31/21 08:30 Urine Cocaine Screen Negative (Negative) 08/31/21 08:30 Ur THC Screen Negative (Negative) 08/31/21 08:30 COVID-19 Source Nasal/Nares 08/31/21 08:05 SARS-CoV-2 (PCR) Negative (Negative) 08/31/21 08:05 Patient ABO/Rh O Negative 08/31/21 09:20 Antibody Screen NEGATIVE 08/31/21 09:20 Subjective Patient Reports: No new Complaints Interval history since last seen: Patient is comfortable with epidural. feeling fatigued. Lengthy conversation about labor progress and possible section. All questions answered. Results Hemoglobin/Hematocrit: Hgb 13.6 g/dL (11.2-15.7) 08/31/21 09:20 Hct 40.5 % (36.0-46.0) 08/31/21 09:20 Abnormal Lab Findings: Abnormal Labs 08/31/21 09:20 RDW 15.7 H
[2021-09-01] MEDS: ePHEDrine 50 MG/ML VIAL IVP ×2 (01:29→01:55)
[2021-09-01] MEDS: Lactated Ringers 1,000 ML 200 ML IV (01:49)
--- NOTE | 2021-09-01 02:50 | W.PM.OBNL1 ---
Date of service: 09/01/21 Time of Service: 02:50 Informed Consent Informed Consent: Section Delivery, Regional Anesthesia and Risk,Benefits,Alternatives Discussed Pelvic Exam Dilation: 4 Contractions Monitor Mode: Internal Contraction Frequency(min): 3 Contraction Duration(sec): 60 IUPC resting tone (mmHg): 20 IUPC peak pressure (mmHg): 100 Fetus A Heart Rate Baseline: 160 Categories: Category II FHR Rhythm: Regular Characteristics: Indeterminate Decelerations: Early, Variable and Prolonged Recurrence: Recurrent Amniotic Membrane Status: Ruptured Objective Abnormal lab results 08/31/21 Range/Units 09:20 RDW 15.7 H (11.7-14.6) % Temp Pulse Resp BP Pulse Ox 99.3 F 87 16 95/56 L 98 09/01/21 01:10 09/01/21 02:48 08/31/21 15:14 09/01/21 02:36 09/01/21 02:45 Laboratory Results WBC 10.25 10^3/uL (4.4-10.8) 08/31/21 09:20 RBC 4.54 10^6/uL (3.93-5.22) 08/31/21 09:20 Hgb 13.6 g/dL (11.2-15.7) 08/31/21 09:20 Hct 40.5 % (36.0-46.0) 08/31/21 09:20 MCV 89.2 fL (80-95) 08/31/21 09:20 MCH 30.0 pg (27.0-33.0) 08/31/21 09:20 MCHC 33.6 % (32.0-36.0) 08/31/21 09:20 RDW 15.7 % (11.7-14.6) H 08/31/21 09:20 Plt Count 227 10^3/uL (130-400) 08/31/21 09:20 MPV 10.3 fL (8.0-11.0) 08/31/21 09:20 Urine Opiates Screen Negative (Negative) 08/31/21 08:30 Urine Methadone Screen Negative (Negative) 08/31/21 08:30 Ur Barbiturates Screen Negative (Negative) 08/31/21 08:30 Ur Tricyclics Screen Negative (Negative) 08/31/21 08:30 Ur Amphetamines Screen Negative (Negative) 08/31/21 08:30 U Benzodiazepines Scrn Negative (Negative) 08/31/21 08:30 Urine Cocaine Screen Negative (Negative) 08/31/21 08:30 Ur THC Screen Negative (Negative) 08/31/21 08:30 COVID-19 Source Nasal/Nares 08/31/21 08:05 SARS-CoV-2 (PCR) Negative (Negative) 08/31/21 08:05 Patient ABO/Rh O Negative 08/31/21 09:20 Antibody Screen NEGATIVE 08/31/21 09:20 Subjective Patient Reports: No new Complaints Interval history since last seen: Throughout the course of the last 2-3 hours intermittent episodes of prolonged variable decels. No significant cervical change, still 4 cm. baseline with tachycardia now 160-170. Discussed with patient and family. Will proceed to primary section. Anesthesia and OR crew notified. All questions answered Results Hemoglobin/Hematocrit: Hgb 13.6 g/dL (11.2-15.7) 08/31/21 09:20 Hct 40.5 % (36.0-46.0) 08/31/21 09:20 Abnormal Lab Findings: Abnormal Labs 08/31/21 09:20 RDW 15.7 H
[2021-09-01] MEDS: ceFAZolin 2 GM/50 ML BAG IVPB (03:04)
[2021-09-01] MEDS: Sodium Citrate 30 ML CUP PO (03:14)
--- NOTE | 2021-09-01 03:57 | PLAC_PTH ---
PATIENT: Tyra Rodríguez LOC: OBS U#:[id number] AGE/SX: 20/F ROOM: OBS.303 RE08/31/[address]: Penelope Quezada CNM : 2000 BED: A DIS: 09/03/2021 SPEC #: [id number] RECD: 09/01/21 12:42 STATUS: DANAE REQ #: [id number] DOV: 09/01/21 03:[address]: Penelope Quezada DEPT: Surgical Specimen RECD BY: Graciela Squires ENTERED: 09/01/21 12:44 SP TYPE: PLAC OTHR DR: Ean Ordoñez Tissues: 1 - PLACENTA (3RD TRIMESTER) Procedures: GROSS AND MICRO LEVEL 5 Comments: [id number]
[2021-09-01] MEDS: AZITHROMYCIN 500 MG in Normal Saline 250 ML 250 MG IVPB (04:10)
[2021-09-01] MEDS: Bupivacaine 0.25% Pres-Free 30 ML VIAL (04:18)
--- NOTE | 2021-09-01 05:07 | W.PM.OBCSECT ---
Date of service: 09/01/21 Time of Service: 05:07 Operative Note Operative Note Delivery Method: Unscheduled STAT: No DATE OF PROCEDURE: 09/01/21 PRE-OP DIAGNOSES: Failed induction, intolerance of labor POST-OP DIAGNOSES: same PROCEDURE: Primary low transverse section SURGEON: Treva Peoples .Net Developer: Julia Duffy Anesthesia: GETA, local and spinal Estimated blood loss (mL): 500 Pathology: other (Placenta for examination, segment of cord for tox screen) Complications: Other (Conversion to general anesthesia) Patient was transported to: floor Patient's condition: stable Indications: intolerance of labor with repetitive prolonged variable decelerations, remote from delivery Findings: Delivery of a viable female with Apgars 3, 7, 9. Normal-appearing tubes, ovaries, uterus Procedure Description: After evaluation on the center and full informed consent was obtained, patient was taken the operating suite with an IV running. She was placed in the seated position and previous epidural catheter removed for the placement of spinal anesthesia. Patient was then placed in the dorsal supine position and during this phase, had vital signs that were unstable which necessitated conversion to general anesthesia. Please see anesthesia note. While in the supine position, after the vaginal prep had been performed and Vallejo catheter had been previously inserted, heart tones were noted to be 140 prior to prepping with Betadine solution and sterile drape placed. A Pfannenstiel skin incision was made carried down to the underlying fascia which was incised and extended laterally. The rectus muscles were split in the midline and peritoneum entered. The peritoneal meal incision extended bluntly and bladder blade was inserted. Vesicouterine peritoneum was incised with a scalpel and bladder pushed down from the lower uterine segment. A scalpel used to make a low transverse uterine incision which was then extended bluntly laterally. At that time, there was noted to be thick, particulate meconium stained fluid and a fetus in the direct occiput posterior position. vertex was delivered through the incision atraumatically. There was evidence of nuchal cord, shoulders followed with ease. Three-vessel cord was noted clamped x2 and cut and the was handed off to the waiting information security specialist. At this point cord blood gas and cord blood sample were both obtained and the placenta was manually expressed from the uterus. Uterus was then exteriorized and cleared of all clot and debris. The uterine incision was closed using 0 Monocryl suture in a running locked fashion followed by a second layer which was imbricating of 0 Monocryl suture. Uterine incision was inspected and found to be hemostatic. Tubes and ovaries were inspected and found to be normal and the uterus was returned to the abdomen. The abdomen was then irrigated with copious amounts of normal saline, and the uterine incision reinspected and found to be hemostatic. At this point the fascial incision was closed using 0 Vicryl suture in a running fashion. Subcutaneous tissue irrigated with copious amounts of normal saline and found to be hemostatic. A 50-50 mix of Exparel and quarter percent Marcaine were infiltrated into the subcu space. Subcu space was then reapproximated with 3-0 Vicryl suture in a simple interrupted fashion. The skin edge was reapproximated with 4-0 undyed Monocryl and Steri-Strips and sterile dressing were placed. The patient awoke from anesthesia and was taken to the postanesthesia care unit in stable condition with a Vallejo catheter draining clear yellow urine. Findings: Delivery of viable female with Apgars 3, 7, 9 from the direct occiput posterior position Complications: Need for conversion to general anesthesia EBL: 500 mL Pathology: Placenta for examination, cord blood gases, cord blood sample, segment of cord for tox screen.
[2021-09-01] MEDS: Lactated Ringers 1,000 ML 120 ML IV (09:00)
--- NOTE | 2021-09-01 12:01 | W.ANESPOSTOP ---
Postoperative Evaluation Date, Time and Location Date Performed: 09/01/21 Time Performed: 12:02 Patient Location: Obstetrics Vital Signs Most Recent Imported Vital Signs: Most Recent Vital Signs Temp Pulse Resp BP Pulse Ox 36.6 C 85 16 91/59 L 94 09/01/21 05:56 09/01/21 06:24 09/01/21 06:24 09/01/21 06:24 09/01/21 05:32 Most Recent Manually Entered Vital Signs: Adult Blood Pressure: 99/61 Heart Rate: 85 Respirations: 16 Oxygen Saturation (%): 97 Temperature (C): 36.6 C Pain Score (0-10 Scale): 0 Pain Score Most Recent Pain Score: Most Recent Pain Score Pain Level 0 09/01/21 05:32 Assessment Mental Status: Awake (Alert & Oriented to Patient Baseline) Airway and Respiratory Function: Patent airway with normal (patient baseline) respiratory exam Cardiovascular Function: Hemodynamically Stable Hydration Status: Adequately Hydrated Nausea & Vomiting: No Nausea or Vomiting Pain: Pain is tolerable per patient Peripheral Nerve Block: Patient did not receive a nerve block
[2021-09-01] MEDS: Normal Saline Flush 10 ML SYR IVP (17:11)
[2021-09-01] MEDS: Ketorolac 30 MG/ML VIAL 15 MG IVP ×2 (17:12→23:06)
[2021-09-02] MEDS: Ibuprofen 600 MG TAB PO ×3 (05:50→19:42)
[2021-09-02 05:52] VITALS: BP 121/74; PULSE 91; RESP 17; TEMP 37; O2SAT 97
[2021-09-02 07:04] LABS: Abs Immature Grans 0.08 10^3/uL (0.0-0.06); Absolute Basophil Count 0.03 10^3/uL (0.0-0.2); Absolute Eosinophil Count 0.18 10^3/uL (0.0-0.7); Absolute Lymphocyte Count 1.52 10^3/uL (1.2-3.4); Absolute Monocyte Count 1.14 10^3/uL (0.1-0.8); Absolute Neutrophil Count 9.75 10^3/uL (1.2-6.7); Basophils % 0.2; Eosinophils % 1.4; HCT 34.9 % (36.0-46.0); HGB 11.7 g/dL (11.2-15.7); Immature Grans % 0.6; MCH 30.5 pg (27.0-33.0); MCHC 33.5 % (32.0-36.0); MCV 90.9 fL (80-95); MPV 10.2 fL (8.0-11.0); Neutrophils % 76.8; Nucleated RBC 0 %; Platelet Count 184 10^3/uL (130-400); RBC 3.84 10^6/uL (3.93-5.22); RDW 15.8 % (11.7-14.6); RDW-SD 52.1 fL
[2021-09-02 08:30] VITALS: BP 99/60; PULSE 72; RESP 16; TEMP 36.5; O2SAT 97
--- NOTE | 2021-09-02 08:36 | W.PM.OBPNV1 ---
Date of service: 09/02/21 Time of Service: 08:36 Assessment and Plan Assessment and plan (1) Status post primary low transverse section: Status: Acute Assessment and plan: From physical standpoint, patient is doing very well postoperative day #1. She has been tolerating regular diet, flatus has been passed. She is working hard on breast-feeding. Bonding is her preop. Her other issues are psychosocial and support services are involved. (2) Problem related to housing and economic circumstances: Status: Acute (3) Bipolar disorder: Status: Chronic Qualifiers: Most recent bipolar episode type: most recent episode unspecified type (4) Rh negative state in antepartum period: Status: Acute (5) Cocaine abuse affecting : Status: Acute Qualifiers: Trimester: second trimester Qualified Code(s): O99.322 - Drug use complicating , second trimester; F14.10 - Cocaine abuse, uncomplicated Subjective Subjective Interval history: Patient seen and examined this morning. Doing well. Working on pumping breastmilk. Her only complaint is fatigue with some mild incisional pain. Diet is appropriate. She is passing gas. Patient comments: No complaints, Pain well controlled, Incisional pain, Tolerating diet and Flatus present baby status: Doing well, Nursing well and Strong Bonding Observed Exam Physical Exam Vital signs: Temp Pulse Resp BP Pulse Ox 98.6 F 91 H 17 121/74 97 09/02/21 05:52 09/02/21 05:52 09/02/21 05:52 09/02/21 05:52 09/02/21 05:52 Constitutional Constitutional: no acute distress HEENT Exam HEENT Exam: Normal Detailed Neck Exam Neck exam general surgery: Present supple Respiratory Exam Respiratory Exam: Normal Detail Cardiovascular Exam Cardiovascular: Present RRR Abdominal Exam Abdomen: Tender Comments: Soft, incision clean, dry, dressed. May remove dressing today. Fundal Exam Fundus: Below Umbilicus and Firm Extremities Exam Extremity Exam: Normal and Edema (1+, bilateral); negative Calf Tenderness Skin Exam Skin Exam: Normal Neurological Exam Neurological Exam: Normal Psychiatric Exam Psychiatric Exam: Normal Results Hemoglobin/Hematocrit: Hgb 11.7 g/dL (11.2-15.7) 09/02/21 06:49 Hct 34.9 % (36.0-46.0) L 09/02/21 06:49 Abnormal Lab Findings: Abnormal Labs 08/31/21 09/02/21 09:20 06:49 WBC 12.70 H RBC 3.84 L Hct 34.9 L RDW 15.7 H 15.8 H Absolute Neutrophils 9.75 H Absolute Monocytes 1.14 H
[2021-09-02] MEDS: Acetaminophen 500 MG TAB 1000 MG PO ×3 (09:34→23:19)
[2021-09-02 12:15] VITALS: BP 105/60; PULSE 89; RESP 16; TEMP 36.9; O2SAT 97
[2021-09-02 17:00] VITALS: BP 112/69; PULSE 74; RESP 16; TEMP 37.3; O2SAT 98
[2021-09-02] MEDS: Docusate Sodium 100 MG CAP PO (18:41)
[2021-09-02 20:11] VITALS: BP 119/76; PULSE 92; RESP 20; TEMP 37; O2SAT 97
[2021-09-02 23:22] VITALS: BP 120/75; PULSE 85; RESP 20; TEMP 37.1; O2SAT 96
[2021-09-03] MEDS: Ibuprofen 600 MG TAB PO (01:42)
[2021-09-03 03:52] VITALS: BP 107/66; PULSE 78; RESP 20; TEMP 36.5; O2SAT 97
[2021-09-03] MEDS: Docusate Sodium 100 MG CAP PO (05:22)
[2021-09-03] MEDS: Acetaminophen 325 MG TAB 650 MG PO (05:22)
[2021-09-03 07:30] VITALS: BP 117/70; RESP 14; TEMP 36.8
--- NOTE | 2021-09-03 08:16 | W.PM.OBPNV1 ---
Date of service: 09/03/21 Time of Service: 08:18 Assessment and Plan Assessment and plan (1) Status post primary low transverse section: Status: Acute Assessment and plan: Patient is postoperative day #2 status post primary low transverse section for intolerance of labor and persistent occiput posterior position. She is doing well and desires discharge home. She has significant psychosocial issues and history of substance use. She has not had a positive drug screen 26 weeks. She is doing eat sleep console with her baby. She has at home nursing services and DFS involvement. She feels like she is in a safe environment. She will be seen back in the office in approximately 2 weeks time. (2) Cocaine abuse affecting : Status: Acute Assessment and plan: No positive drug screen since 26 weeks Qualifiers: Trimester: second trimester Qualified Code(s): O99.322 - Drug use complicating , second trimester; F14.10 - Cocaine abuse, uncomplicated (3) Bipolar disorder: Status: Chronic Assessment and plan: Stable affect today. Qualifiers: Most recent bipolar episode type: most recent episode unspecified type Subjective Subjective Interval history: Patient seen and examined this morning. Doing well. She has decided to bottlefeed only which has made her much happier. She has minimal pain at the incision. She is passing flatus. She is tolerating regular diet. She is bonding well with baby. She does desire discharge home today. 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 She has home nursing scheduled. She will see me in the office in 2 weeks. Patient comments: No complaints, Pain well controlled, Incisional pain and Tolerating diet baby status: Doing well and Bottle feeding well [place] feeding status: Exclusively formula feeding Exam Physical Exam Vital signs: Temp Pulse Resp BP Pulse Ox 97.7 F 78 20 107/66 97 09/03/21 03:52 09/03/21 03:52 09/03/21 03:52 09/03/21 03:52 09/03/21 03:52 Constitutional Constitutional: no acute distress and cooperative HEENT Exam HEENT Exam: Normal Respiratory Exam Respiratory Exam: Normal Detail Cardiovascular Exam Cardiovascular: Present RRR, S1 and S2 Abdominal Exam Abdomen: Tender Fundal Exam Fundus: Below Umbilicus and Firm Extremities Exam Extremity Exam: Edema (1+, bilateral) and Full ROM; negative Calf Tenderness, Pallor and Redness Skin Exam Skin Exam: Normal Detailed Neurological Exam Neurological: Present alert and oriented X3 DetailedPsychiatric Exam Psych Exam: Normal Affect, Normal Thougth Process, Cooperative, Good Insight and Good Judgement Results Hemoglobin/Hematocrit: Hgb 11.7 g/dL (11.2-15.7) 09/02/21 06:49 Hct 34.9 % (36.0-46.0) L 09/02/21 06:49 Abnormal Lab Findings: Abnormal Labs 08/31/21 09/02/21 09:20 06:49 WBC 12.70 H RBC 3.84 L Hct 34.9 L RDW 15.7 H 15.8 H Absolute Neutrophils 9.75 H Absolute Monocytes 1.14 H
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
== END 2021-09-03 11:45 | disposition home or self-care (01) | DRG 787 ==
LOC: OBS 08:53 → BCD 08:54 → OBS 08:54
PROVIDERS: Obstetrics & Gynecology; Admitting Provider Advanced Practice Midwife; PCP Nurse Practitioner Family; Visit Provider Advanced Practice Midwife
PROC: 10D00Z1 Extraction of Products of Conception, Low, Open Approach (ICD-10-PCS; CPT 59514; principal; 2021-09-01 03:45)
DX: O48.0 Post-term pregnancy (principal); O36.0930 Maternal care for other rhesus isoimmunization, third trimester, not applicable or unspecified; Z37.0 Single live birth; Z3A.41 41 weeks gestation of pregnancy; O61.0 Failed medical induction of labor; O99.62 Diseases of the digestive system complicating childbirth; O99.344 Other mental disorders complicating childbirth; K21.9 Gastro-esophageal reflux disease without esophagitis; F43.10 Post-traumatic stress disorder, unspecified; F31.9 Bipolar disorder, unspecified; O36.8330 Maternal care for abnormalities of the fetal heart rate or rhythm, third trimester, not applicable or unspecified
CPT/HCPCS: 59200; 59514; 36415; 76816; 80307; 82803; 85027; 85461; 86850; 86900; 86901; 87635; 90384; 59025; 85025; 88307; J0456; J0690; J1885; J2250; J2370; J2405; J2590; J2704; J2790; J3010; J3490